=== PATIENT | female | born 1950 | race Caucasian/White ===

== ENCOUNTER 2020-11-07 23:01 | Emergency (ER) | payer OTHER | END 2020-11-08 01:25 | disposition home or self-care (01) | LOC: ER1 23:01 | DX: S00.83XA Contusion of other part of head, initial encounter (principal); M25.561 Pain in right knee; M25.532 Pain in left wrist; M54.2 Cervicalgia; W01.0XXA Fall on same level from slipping, tripping and stumbling without subsequent striking against object, initial encounter | CPT/HCPCS: 70450; 70486; 72125; 73110; 73564; 99284 ==